=== PATIENT | female | born 1985 | race American Indian/Alaskan Native ===

== ENCOUNTER 2021-07-30 08:14 | Outpatient (CLI) | payer OTHER ==
--- NOTE | 2021-07-30 09:42 | Fluoroscopy Report ---
BARIUM SWALLOW Indication: MORBID OBESITY. Preoperative evaluation for gastric sleeve Technique: Single contrast barium technique utilized to evaluate the esophagus. FINDINGS: To begin the exam, swallowing was evaluated in the lateral position under direct fluorosco py. Swallowing was normal. No mucosal irregularity, mass, mass effect, or critical stenosis. There were no abnormal tertiary c ontractions as seen with dysmotility. No gastroesophageal reflux. IMPRESSION: Unremarkable exam. Fluoroscopic time: 1.1 minutes Number of fluoroscopic images: 53 Signer Name: Kit España Jr, MD Signed: 07/30/2021 9:37 AM Workstation Name: [id number]
--- NOTE | 2021-08-07 13:21 | Treadmill Report ---
DATE OF SERVICE: 07/30/2021 TREADMILL STRESS TEST REFERRING PHYSICIAN: Dr. Staley. DESCRIPTION OF PROCEDURE: The patient was brought to the treadmill suite in a postabsorptive state. Exercised on a standard Pipo protocol treadmill. Resting heart rate was 72. Resting blood pressure 125/58. Patient exercised for a total of 4 minutes and 6 seconds to achieve over 100% of target heart rate. There was equivocal 1-[address] segment depression inferolaterally at peak stress. No evidence of chest pain, shortness of breath or arrhythmias. Test was stopped due to fatigue. Peak blood pressure is 214/89. Equivocal stress test with 1-[address] segment depression inferolaterally at peak stress. These changes resolved within the first minute of recovery. 1. No chest pain or arrhythmias during stress or recovery. 2. Early heart rate response. Heart rate was 150 within the first minute of stress. 3. Exaggerated blood pressure response. Given the equivocal nature of the stress test and poor exercise tolerance, we will consider chemical stress test with nuclear perfusion imaging and echocardiography for further preoperative assessment. TID: [id number] RECEIPT: [id number] INÉS/JENNIFFER
== END 2021-07-30 08:15 | disposition home or self-care (01) ==
LOC: FLUORO 08:14
PROVIDERS: ATTEND Surgery
DX: E66.01 Morbid (severe) obesity due to excess calories (principal)
CPT/HCPCS: 74220

== ENCOUNTER 2021-08-07 07:50 | Outpatient (CLI) | payer OTHER ==
--- NOTE | 2021-08-08 11:46 | Electrocardiograph Report ---
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
--- NOTE | 2021-08-08 11:47 | Treadmill Report ---
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
== END 2021-08-07 07:51 | disposition home or self-care (01) ==
LOC: CARD 07:50
PROVIDERS: ATTEND Surgery
DX: E66.01 Morbid (severe) obesity due to excess calories (principal)
CPT/HCPCS: 93005; 93017

== ENCOUNTER → 2021-08-07 | Outpatient (CLI) | payer OTHER | END | disposition home or self-care (01) | LOC: SLR 11:00 | PROVIDERS: ATTEND Surgery | DX: G47.30 Sleep apnea, unspecified (principal) | CPT/HCPCS: 95810 ==

== ENCOUNTER 2021-08-21 07:22 | Day surgery (SDC) | payer OTHER ==
[~2021-08-21 07:22] MED LIST: SODIUM CHLORIDE 0.9% 1000 ML 1,000 ML IV SCH
--- NOTE | 2021-08-21 10:35 | Operative Report ---
Operative Report Operative Report: DATE: 08/21/2021 SURGERY: Upper endoscopy. SURGEON: Schuyler Staley M.D. PROCEDURE: EGD with biopsy PRE OP DX: morbid obesity, GERD POST OP DX: morbid obesity, GERD TYPE OF ANESTHESIA: MAC. ESTIMATED BLOOD LOSS: None. COMPLICATIONS: None. SPECIMENS REMOVED: antral biopsy FINDINGS: 1. Small hiatal hernia. 2. mild antral gastritis INDICATIONS:INDICATION FOR PROCEDURE: Patient is a 36-year-old female with a long history of morbid obesity. She is planned to have a weight loss procedure and is here for preoperative planning EGD. PROCEDURE DETAILS: After consent was reviewed, patient was taken back to the operating room where patient was placed in the left lateral decubitus position and a bite block was placed in the mouth. After a time-out was called, MAC anesthesia was initiated. I then passed the endoscope into her oropharynx, into her esophagus, visualized the entire esophagus, which was all within normal limits. Z-line was noted to about 38cm from incisors. I then visualized the stomach and the first portion of the duodenum and there were no abnormalities I could clearly visualize except for antral gastritis. A cold forceps biopsy of the antrum was taken and will be sent to pathology to evaluate for H.pylori. I then retroflexed the scope in the stomach and visualized the hiatus and I could see a small hiatal hernia. I then desufflated the stomach and removed the endoscope. Patient tolerated procedure well and was transferred to recovery room in good and stable condition.
--- NOTE | 2021-08-21 10:37 | Discharge Summary ---
Providers - Providers Date of Admission: 08/21/2021 Date of discharge: 08/21/21 Attending physician: CRISTINE COOPER MD Hospitalization Reason for admission: pre-op egd prior to planned bariatric surgery Condition: Good Procedures: egd with bx Hospital course: Pt presented for a pre-op EGD as part of planning for up coming bariatric surgery. Procedure was uneventful and pt recovered well and was discharged to home. Disposition: 01 HOME / SELF CARE / HOMELESS Final Discharge Diagnosis (Prints w/discharge instructions): morbid obesity, gerd Core Measure Documentation - Palliative Care Palliative Care/ Comfort Measures: Not Applicable - Core Measures Any of the following diagnoses?: none Exam - Physical Exam Narrative exam: unchanged from pre-op - Constitutional Vitals: Temp Pulse Resp BP Pulse Ox 98.9 F 76 15 125/76 100 08/21/21 10:10 08/21/21 10:10 08/21/21 10:10 08/21/21 10:10 08/21/21 10:10 Plan Activity: advance as tolerated Diet: low carbohydrate Follow up with: LU FERGUSON [Other] - 7 Days
[2021-08-21] MEDS ORDERED: LIDOCAINE MPF (2%) 20 MG/1 ML VIAL 5 ML ONE (10:50)
[2021-08-21] MEDS ORDERED: MIDAZOLAM 2 MG/2 ML INJ ONE (10:51)
[2021-08-21] MEDS ORDERED: propofoL 200 MG/20 ML VIAL IV ONE (10:51)
--- NOTE | 2021-08-21 11:17 | Anesthesia Day of Surgery ---
Anesthesia Day of Surgery - Day of Surgery Patient Examined: Yes Patient H&P Reviewed: Yes Patient is NPO: Yes
--- NOTE | 2021-08-21 11:17 | Anesthesia Consultation ---
Anesthesia Consult and Med Hx Date of service: 08/21/21 - Airway Anesthetic Teeth Evaluation: Good ROM Head & Neck: Adequate Mental/Hyoid Distance: Adequate Mallampati Class: Class I Intubation Access Assessment: Good - Pulmonary Exam CTA: Yes - Cardiac Exam Cardiac Exam: RRR - Pre-Operative Health Status ASA Pre-Surgery Classification: ASA3 Proposed Anesthetic Plan: MAC
--- NOTE | 2021-08-21 14:09 | Post Anesthesia Evaluation ---
- Post Anesthesia Evaluation Patient Participated: Yes Airway Patent: Yes Stable Respiratory Function: Yes Nausea/Vomiting: No Temp > 96.8F: Yes Pain Manageable: Yes Adequeate Hydration: Yes Anesthesia Complications: No Block Receding Appropriately: Not Applicable Patient on Ventilator: No
[2021-08-21 14:13] VITALS: BP 130/88
== END 2021-08-21 09:00 | disposition home or self-care (01) ==
LOC: GIO 07:22
PROVIDERS: ATTEND Surgery
DX: E66.01 Morbid (severe) obesity due to excess calories (principal); K21.9 Gastro-esophageal reflux disease without esophagitis; K29.50 Unspecified chronic gastritis without bleeding; K44.9 Diaphragmatic hernia without obstruction or gangrene; K31.89 Other diseases of stomach and duodenum; Z79.899 Other long term (current) drug therapy
CPT/HCPCS: 43239; 81025; 88305; 88342; J2250; J2704; J7030

== ENCOUNTER 2021-09-24 15:26 | Outpatient (CLI) | payer OTHER ==
[2021-09-24 15:52] LABS: Basophils # (Auto) 0.1 K/mm3 (0.0-0.1); Eosinophils # (Auto) 0.2 K/mm3 (0.0-0.4); Eosinophils % (Auto) 3.2 % (0.0-4.3); Lymphocytes # (Auto) 2.6 K/mm3 (1.2-5.4); Lymphocytes % (Auto) 39.6 % (13.4-35.0); Mean Corpuscular HGB Conc 29 % (30-34); Mean Corpuscular Volume 73 fl (79-97); Monocytes # (Auto) 0.5 K/mm3 (0.0-0.8); Monocytes % (Auto) 8.2 % (0.0-7.3); Platelet Count 330 K/mm3 (140-440); Red Blood Count 4.09 M/mm3 (3.65-5.03); Red Cell Distribution Width 19.4 % (13.2-15.2)
[2021-09-24 16:02] LABS: Hematocrit 29.7 % (30.3-42.9); Hemoglobin 8.6 gm/dl (10.1-14.3)
[2021-09-24 16:06] LABS: Amphetamine Screen,Urine Negative; Benzodiazepines Screen,Urine Negative; Cannabinoid Screen,Urine Negative; Cocaine Screen,Urine Negative; Methadone Screen,Urine Negative; Opiate Screen,Urine Negative
[2021-09-24 16:15] LABS: % Iron Saturation 8.68 %; Alanine Aminotransferase 8 units/L (7-56); Albumin 3.9 g/dL (3.9-5); Blood Urea Nitrogen 15 mg/dL (7-17); Calcium 9.1 mg/dL (8.4-10.2); Chol/HDL Ratio 4.12 %; HDL Cholesterol 50 mg/dL (40-59); Hemolysis Index 0; Iron 29 ug/dL (37-170); LDL Cholesterol,Direct 138 mg/dL (50-130); Total Iron Binding Capacity 334 mcg/dL (250-450)
[2021-09-24 16:20] LABS: BUN/Creatinine Ratio 25
== END 2021-09-24 15:27 | disposition home or self-care (01) ==
LOC: LAB 15:26
PROVIDERS: ATTEND Surgery
DX: Z01.812 Encounter for preprocedural laboratory examination (principal); E66.01 Morbid (severe) obesity due to excess calories
CPT/HCPCS: 36415; 80053; 80061; 80307; 82306; 82607; 82728; 83036; 83550; 84443; 84703; 85025; 85730

== ENCOUNTER 2022-01-14 06:20 | Inpatient (IN) | payer OTHER ==
[2022-01-11 10:31] LABS: Hematocrit 30.4 % (30.3-42.9); Hemoglobin 9.6 gm/dl (10.1-14.3); Mean Corpuscular HGB Conc 32 % (30-34); Mean Corpuscular Volume 76 fl (79-97); Platelet Count 320 K/mm3 (140-440); Red Cell Distribution Width 19.8 % (13.2-15.2)
[2022-01-11 10:53] LABS: Alanine Aminotransferase 9 units/L (7-56); Albumin 4.2 g/dL (3.9-5); Blood Urea Nitrogen 12 mg/dL (7-17); Calcium 9.9 mg/dL (8.4-10.2); Hemolysis Index 0
[2022-01-11 10:55] LABS: BUN/Creatinine Ratio 20
--- NOTE | 2022-01-11 11:54 | Anesthesia Consultation ---
Anesthesia Consult and Med Hx Date of service: 01/14/22 - Airway Anesthetic Teeth Evaluation: Good ROM Head & Neck: Adequate Mental/Hyoid Distance: Adequate Mallampati Class: Class II Intubation Access Assessment: Probably Good - Pulmonary Exam CTA: Yes - Cardiac Exam Cardiac Exam: RRR - Pre-Operative Health Status ASA Pre-Surgery Classification: ASA3 Proposed Anesthetic Plan: General - Pulmonary Hx Smoking: No Hx Respiratory Symptoms: No (normal PFTs) Hx Sleep Apnea: No (negative sleep study) - Cardiovascular System Hx Hypertension: No Hx Heart Attack/AMI: No (negative stress test, normal TTE) Hx Cardia Arrhythmia: No - Central Nervous System CVA: No - Gastrointestinal Hx Gastroesophageal Reflux Disease: No (small hiatal hernia) - Endocrine Hx Renal Disease: No Hx Liver Disease: No Hx Insulin Dependent Diabetes: No Hx Non-Insulin Dependent Diabetes: No Hx Thyroid Disease: No - Hematic Hx Anemia: Yes (no hx blood transfusion) - Other Systems Hx Obesity: Yes (BMI 57) - Additional Comments Anesthesia Medical History Comments: No hx anesthetic complications. Preop pulmonary, cardiac, and medical evals on chart reviewed.
[~2022-01-14 06:20] MED LIST changes: +ACETAMINOPHEN IV 1,000 MG/100 ML BOTTLE IV NR; +ENOXAPARIN 40 MG/0.4 ML INJ SUB-Q NR; +GABAPENTIN 500 MG/10 ML ORAL LIQD PO NR; +LACTATED RINGERS 1,000 ML IV SCH; +MIDAZOLAM 2 MG/2 ML INJ IV NR; +SCOPOLAMINE TRANSDERMAL PATCH 72 HR TD NR; -SODIUM CHLORIDE 0.9% 1000 ML 1,000 ML IV SCH; +methOCARBAMOL 1,000 MG in SODIUM CHLORIDE 0.9% 250ML 250 ML IV SCH; +metroNIDAZOLE/NS 500 MG/100 ML 500 MG/100 ML BAG IV NR
[2022-01-14] MEDS ORDERED: HYDROmorphone 1 MG/1 ML INJ IV PRN ×2 (08:28→15:00)
[2022-01-14] MEDS ORDERED: ONDANSETRON 4 MG/2 ML INJ IV PRN ×2 (08:28→14:42)
--- NOTE | 2022-01-14 08:28 | Anesthesia Day of Surgery ---
Anesthesia Day of Surgery - Day of Surgery Patient Examined: Yes Patient H&P Reviewed: Yes Patient is NPO: Yes
[2022-01-14] MEDS ORDERED: LIDOCAINE 2%/EPINEPHRINE 1:200,000 VIAL (20 ML) INFILTRATI ONE (11:52)
[2022-01-14] MEDS ORDERED: BUPIVACAINE/PF (0.25%) 2.5 MG/ML 30 ML VIAL INFILTRATI ONE ×2 (11:52→13:21)
[2022-01-14] MEDS ORDERED: SUGAMMADEX SODIUM 200 MG/2 ML VIAL IV ONE (12:19)
[2022-01-14] MEDS ORDERED: MAGNESIUM SULFATE 4 GM/100 ML BAG IV ONE (12:19)
[2022-01-14] MEDS ORDERED: ROCURONIUM 50 MG/5 ML INJ IV ONE (12:24)
[2022-01-14] MEDS ORDERED: SODIUM CHLORIDE P/F VIAL 10 ML 10 ML ONE (12:24)
[2022-01-14] MEDS ORDERED: LIDOCAINE MPF (2%) 20 MG/1 ML VIAL 5 ML ONE (12:24)
[2022-01-14] MEDS ORDERED: KETAMINE/STERILE WATER 50 MG/ML SYRINGE ONE (12:31)
[2022-01-14] MEDS ORDERED: LIDOCAINE 2%/EPINEPHRINE 1:100,000 VIAL (20 ML) INFILTRATI ONE (13:21)
[2022-01-14] MEDS ORDERED: SODIUM CHLORIDE 0.9% IRR 1,500 ML BOTTLE IR ONE (13:21)
[2022-01-14] MEDS ORDERED: dexAMETHasone 20 MG/5 ML VIAL ONE (13:25)
[2022-01-14] MEDS ORDERED: KETOROLAC 30 MG/1 ML INJ ONE (13:25)
[2022-01-14] MEDS ORDERED: MIDAZOLAM 2 MG/2 ML INJ ONE (13:25)
[2022-01-14] MEDS ORDERED: ONDANSETRON 4 MG/2 ML INJ ONE (13:26)
[2022-01-14] MEDS ORDERED: METOCLOPRAMIDE 10 MG/2 ML INJ IV PRN (14:42)
[2022-01-14] MEDS ORDERED: MORPHINE 2 MG/1 ML INJ IV PRN (14:42)
--- NOTE | 2022-01-14 14:50 | Operative Report ---
Operative Report Operative Report: DATE:01/14/2022 Surgeon: Schuyler Staley MD Dog Raiser surgeon: Radha Resendiz CSA MD Pre-op Dx: morbid obesity Post-op Dx: morbid obesity Procedure: 1. laparoscopic sleeve gastrectomy, Anesthesia: GETA, TAP block EBL: <10ml Specimen: gastric remnant Complication: none immediate Indication: 36 year old female with a history of morbid obesity . Pt is here for sleeve gastrectomy for weight loss to achieve healthier weight and improve or resolve her co-morbidities. She expressed understanding of the risks and benefits. PROCEDURE IN DETAIL: After consent was reviewed, patient was taken back to the operating room, where patient was placed supine on the bed with both arms out. The patient's legs were doubly strapped to the bed. Patient had a foot board in place. Patient had a body warmer placed by anesthesia. General anesthesia was induced with successful endotracheal intubation. Patient was then prepped and draped in normal sterile surgical fashion. After a time-out was called, I made a stab incision in the left subcostal area and placed a Veress needle through this incision and insufflated the abdomen to 18 mmHg pressure. I then counted down a handsbreadth below the xiphoid process in the midline and slightly left lateral injected local anesthetic and made about 1 cm transverse incision. I then used a 5-mm Optiview trocar to enter into the abdomen. There was no gross injury to any intra-abdominal structures. I then placed a 30-degree scope through this port and inspected the abdomen. I then placed a 5-mm port in the right upper quadrant, and 1 epigastric area below the costovertebral angle. I then placed a 15-mm port about a handsbreadth in the right mid abdomen. After which a 5mm port was placed in left upper quadrant port along the anterior axillary line in a similar fashion. A liver retractor was placed to the epigastric port to elevate the left lateral lobe and liver. The anterior gastric fat pad was excised. Starting approximately 6 cm proximal to the pylorus, using a Enseal device the short gastrics were taken all the way to the left jesus manuel. Once the lateral portion of the stomach was mobile anesthesia passed a 40 German bougie along the medial aspect to act as a stent. Using serial firings of endoscopic stapler to gold, followed by 5 blue, the lateral portion of the stomach was transected making sure to did not close to the 2 cm to the incisura. All staple loads were supported with Ethicon buttress strips. The sleeve stomach was seen to be witho ut kink obstruction or twisting. The pressure was decreased to 10 mmHg. The staple line was inspected for approximately 5 minutes. There was no significant bleeding appreciated except for a slight loose at the most distal portion of the staple line. Bleeding was minimal and easily controlled with minimal cautery. Vistaseal was then sprayed along the entirety of the staple line. The liver re tractor was removed. This was after the gastric remnant was grasped and pulled into the 15 mm trocar site. The stomach was extracted via the 15 mm trocar site. After the fascia had to be stretched with a Shruthi clamp to easily remove the stomach, the fascia was closed using a franchesca steven device at the level of the fascia with an 0 PDS. trocars were removed under direct visualization. A TAP block was performed in transverse abdominis plane at the mid axillary line bilaterally using 60cc of 0.25% marcaine. All skin incisions were closed with 4-0 Monocryl followed by Dermabond. Patient was awoken, extubated, and taken to recovery stable condition. All counts were correct.
[2022-01-14] MEDS ORDERED: ACETAMINOPHEN IV 1,000 MG/100 ML BOTTLE IV SCH (15:00)
[2022-01-14] MEDS ORDERED: ceFAZolin/NS 1 GM/50 ML 1 GM/50 ML BAG IV SCH (15:00)
[2022-01-14] MEDS ORDERED: hydrALAZINE 20 MG/1 ML INJ IV PRN (15:00)
[2022-01-14] MEDS: HYDROmorphone 1 MG/1 ML INJ IV PRN ×2 (15:00→15:10)
[2022-01-14] MEDS ORDERED: metroNIDAZOLE/NS 500 MG/100 ML 500 MG/100 ML BAG IV SCH (15:00)
[2022-01-14] MEDS ORDERED: KETOROLAC 30 MG/1 ML INJ IV SCH (15:00)
[2022-01-14] MEDS ORDERED: LACTATED RINGERS 1,000 ML IV SCH (16:00)
[2022-01-14] MEDS ORDERED: HYDROcodone/Acetaminophen 7.5-325MG-15ML ORAL LIQD PO PRN (16:00)
[2022-01-14] MEDS: PANTOPRAZOLE 40 MG INJ IV SCH (17:07)
[2022-01-14] MEDS: SIMETHICONE 80 MG CHEW TAB PO PRN (17:22)
[2022-01-14] MEDS: ACETAMINOPHEN IV 1,000 MG/100 ML BOTTLE IV SCH (21:21)
[2022-01-14] MEDS: KETOROLAC 30 MG/1 ML INJ IV SCH (21:23)
[2022-01-14] MEDS: ceFAZolin/NS 1 GM/50 ML 1 GM/50 ML BAG IV SCH (21:23)
[2022-01-14] MEDS: metroNIDAZOLE/NS 500 MG/100 ML 500 MG/100 ML BAG IV SCH (21:24)
[2022-01-15] MEDS: KETOROLAC 30 MG/1 ML INJ IV SCH ×3 (01:30→08:03)
[2022-01-15] MEDS: SIMETHICONE 80 MG CHEW TAB PO PRN ×2 (01:31→10:15)
[2022-01-15] MEDS: ACETAMINOPHEN IV 1,000 MG/100 ML BOTTLE IV SCH ×3 (01:31→13:10)
[2022-01-15 05:34] LABS: Basophils % (Auto) 0.2 % (0.0-1.8); Hematocrit 31.7 % (30.3-42.9); Hemoglobin 9.8 gm/dl (10.1-14.3); Lymphocytes % (Auto) 11.7 % (13.4-35.0); Mean Corpuscular HGB Conc 31 % (30-34); Mean Corpuscular Volume 77 fl (79-97); Monocytes # (Auto) 0.5 K/mm3 (0.0-0.8); Monocytes % (Auto) 5.5 % (0.0-7.3); Platelet Count 299 K/mm3 (140-440); Red Blood Count 4.12 M/mm3 (3.65-5.03); Red Cell Distribution Width 19.6 % (13.2-15.2)
[2022-01-15 05:54] LABS: Alanine Aminotransferase 11 units/L (7-56); Blood Urea Nitrogen 5 mg/dL (7-17); Calcium 8.8 mg/dL (8.4-10.2); Hemolysis Index 0
[2022-01-15 05:56] LABS: BUN/Creatinine Ratio 8
[2022-01-15] MEDS: ceFAZolin/NS 1 GM/50 ML 1 GM/50 ML BAG IV SCH (06:15)
[2022-01-15] MEDS: metroNIDAZOLE/NS 500 MG/100 ML 500 MG/100 ML BAG IV SCH ×2 (06:15→13:15)
--- OUTSIDE RECORDS SUMMARY | 2022-01-15 09:00 | External Medical Summary ---
:1985 Author Organization [facility], [facility] Address [address] [place] [address] Care Team Providers Name Role Phone Luís Unavailable [phone] PROBLEMS Type Condition ICD9-CM MET09-AY Onset Condition W/U Status Risk SNOM ED Notes Code Code Dates Status Code Problem Sleep G47.9 Active confirmed 83240808 disorder, unspecified Problem Morbid E66.01 Active confirmed 018510074 (severe) obesity due to excess calories Problem Dietary Z71.3 Active confirmed 514869327 counseling and surveillance Problem Functional K30 Active confirmed 0409242 dyspepsia ALLERGIES No Known Allergies ENCOUNTERS from 1985 to 2022-01-11 Encounter Location Date Provider Diagnosis [facility] Jan, Schuyler Tan rbid (severe) [facility] Level of obesity due to excess [facility] [place], [place] calories E 66.01 [id number] IMMUNIZATIONS No Information SOCIAL HISTORY Sex Assigned At : Social History Observation Description Sex Assigned At Unknown REASON FOR REFERRAL from 1985 to 2022-01-11 Reason Gastric Bypass Diagnosis 1 Morbid (severe) obesity due to excess calories (E66.01) Diagnosis 2 Sleep disorder, unspecified (G47.9) Diagnosis 3 Functional dyspepsia (K30) Diagnosis 4 Low back pain (M54.5) Referral Organization [facility] Referring Provider First Name Schuyler Referring Provider Last Name Luís Referring Provider Specialty Surgery [facility] - Referral Priority Routine VITAL SIGNS Height 66 in Jan, Weight 347.1 lbs Jan, Temperature 97.5 degrees Fahrenheit Jan, BMI 56.02 kg/m2 Jan, Blood pressure systolic 116 mm Hg Jan, Blood pressure diastolic 80 mm Hg Jan, MEDICATIONS Medication SIG (Take, Route, Notes Start Date End Date Status Frequency, Duration) Omeprazole 40 MG 1 capsule 30 minutes Jan, Active before morning meal Orally Once a day HYDROcodone-Acetaminophen 15 ml as needed Orally Jan, 022 Active 7.5-325 MG/15ML every 6 hrs prn pain Ondansetron 4 MG 1-2 tablet on the tongue Jan, Active and allow to dissolve Orally q 4-6 hours prn nausea PROCEDURES No Information RESULTS No Results REASON FOR VISIT PreOp Sleeve MEDICAL (GENERAL) HISTORY Type Description Date Medical History back pain Surgical History x2 Hospitalization History as above Goals Section No Information Health Concerns No Information MEDICAL EQUIPMENT No Information MENTAL STATUS No Information FUNCTIONAL STATUS No Information ASSESSMENTS Encounter Date Diagnosis Assessment Notes Treatment Notes Treatm ent Clinical Notes Jan, Morbid (severe) An hour was spent obesity due to with patient excess calories reinforcing diet, (ICD-10 - E66.01) vitamin requirements and lifestyle education, A quiz was administered and reviewed to verify understanding of intended procedure and post operative care. Consent forms were reviewed with patient and signed answering all questions, Pre-operative labs were ordered. PLAN OF TREATMENT Medication Medication Name Sig Start Date Stop Date Omeprazole 40 MG 1 capsule 30 minutes before Jan, morning meal Orally Once a day Ondansetron 4 MG 1-2 tablet on the tongue and Jan, allow to dissolve Orally q 4-6 hours prn nausea HYDROcodone-Acetaminophen 7.5-325 15 ml as needed Orally every 0 Jan, MG/15ML 6 hrs prn pain Treatment Notes Assessment Notes Clinical Notes Morbid (severe) obesity due to An hour was spent with patient reinforcing diet, vitamin requirements and lifestyle education, A quiz was administered and reviewed to verify understanding of intended procedure and post operative care. excess calories Consent forms were reviewed with patient and signed answering all questions, Pre-operative labs were ordered. Referrals Referral Date Details Gastric Bypass Next Appt Details for surgery Reason: Provider Name:Schuyler Staley, 2022-01- 4 10:00:00 AM, [address] [facility], [place], [place], [address], Insurance Providers Payer Name Payer Payer Insured Patient Coverage Coverage Subscriber Group Address Phone Name Relationship Start End Date Number Nu mber to Insured Date [phone] [place] [id number] CLAIM[place] [phone] ON,JASMI [address] [place] [facility] [place] [phone]
[2022-01-15] MEDS ORDERED: ENOXAPARIN 40 MG/0.4 ML INJ SUB-Q SCH (10:00)
[2022-01-15] MEDS: PANTOPRAZOLE 40 MG INJ IV SCH (10:12)
--- NOTE | 2022-01-15 15:44 | Discharge Summary ---
Providers - Providers Date of Admission: 01/14/22 07:54 Date of discharge: 01/15/22 Attending physician: CRISTINE COOPER MD 01/14/22 14:43 Physical Therapy Evaluation and Treat [CONS] Routine Comment: Reason For Exam: s/p bariatric surgery Primary care physician: BENSON CORBIN MD Hospitalization Reason for admission: s/p bariatric surgery Condition: Good Procedures: Laparoscopic gastric sleeve for the treatment of morbid obesity Hospital course: Patient had an uneventful laparoscopic gastric sleeve the treatment of morbid obesity. She was admitted for observation. She maintains normal vital signs and was afebrile. She was tolerating clear liquids easily and ambulating wit hout difficulty. Her pain was controlled and she showed no gross clinical signs of leak or bleeding prior to discharge. She was discharged to home on postoperative day #1. She is to follow-up in the office in 2 weeks. Disposition: 01 HOME / SELF CARE / HOMELESS Final Discharge Diagnosis (Prints w/discharge instructions): morbid obesity Core Measure Documentation - Palliative Care Palliative Care/ Comfort Measures: Not Applicable - Core Measures Any of the following diagnoses?: none Exam - Constitutional Vitals: Temp Pulse Resp BP Pulse Ox 98.8 F 76 18 156/65 98 01/15/22 11:50 01/15/22 08:22 01/15/22 11:50 01/15/22 11:50 01/15/22 08:22 General appearance: Present: no acute distress, obese - EENT Eyes: Present: PERRL. Absent: scleral icterus ENT: hearing intact - Respiratory Respiratory effort: normal - Cardiovascular Heart Sounds: Present: S1 & S2 - Extremities Extremities: no ischemia - Abdominal General gastrointestinal: Present: soft, other (Incisions clean dry and intact). Absent: non-tender Plan Activity: advance as tolerated Diet: clear liquids Wound: open to air, keep clean and dry Follow up with: PRIMARY CARE, [Primary Care Provider] - 7 Days
[2022-01-15 16:35] VITALS: BP 147/74
== END 2022-01-15 18:54 | disposition home or self-care (01) | DRG 621 ==
LOC: 3A 07:54 → 4A 14:43
PROVIDERS: ADMIT Surgery; ATTEND Surgery
PROC: 0DB64Z3 Excision of Stomach, Percutaneous Endoscopic Approach, Vertical (ICD-10-PCS; principal; 2022-01-14)
DX: E66.01 Morbid (severe) obesity due to excess calories (principal); Z68.44 Body mass index [BMI] 60.0-69.9, adult
CPT/HCPCS: 36415; 80053; 84703; 85025; 85027; 88307; G0378; J3490; J7121; J7517; C9113; J0131; J0690; J1100; J1170; J1650; J1885; J2250; J2405; J2704; J3475; J7120